=== PATIENT | female | born 1995 | race Caucasian/White ===

== ENCOUNTER 2019-04-18 08:49 | Emergency (ER) | payer BC ==
--- NOTE | 2019-04-18 09:34 | EDM.PDOC ---
ED HPI GENERAL MEDICAL PROBLEM - General Source of Information: Reports: Patient History Limitations: Reports: No Limitations - History of Present Illness Onset: Today Onset Time: 08:15 Location: Reports: Head, Back Quality: Reports: Throbbing Severity: Mild Headache Pain Score (Numeric/FACES): 5 Lower Back Pain Score (Numeric/FACES): 3 <Lori Haynes - Last Filed: 04/18/19 09:28> <Saul Carver - Last Filed: 04/18/19 09:44> - General Chief Complaint: Trauma Stated Complaint: FELL ON ICE (38 WEEKS ) Time Seen by Provider: 04/18/19 09:15 - History of Present Illness INITIAL COMMENTS - FREE TEXT/NARRATIVE: Patient is a pleasant 24-year-old female, 38 weeks , presents to the ED after falling on the ice at 0815. She was walking to work when she slipped on the ice. She reports her feet slipped out from underneath her and she landed on her back and then hit the back of her head on the sidewalk. The fall was not witnessed. She denies loss of conscious, but reports "seeing stars " for a few seconds. She states she sat on the sidewalk for about 5 minutes before getting up and finished her walk to work. She now has a headache that is throbbing and a 5/10 in severity and low back pain that is 3/10 in severity. She has been having lower abdominal cramps, [place], for the past week and is still having them this morning. After the fall she could not feel the baby kick, but since being in the ED she has felt the baby kick multiple times. She states her head is tender and she feels a "lump" on the back of her head where it hit the sidewalk. She denies abdominal pain, vaginal discharge, nausea , chest pain, and shortness of breath. Of note, her OB is Dr. Moni Vidal. Dr. Vidal's office sent the patient over to the ED for evaluation and then she is to go to Dr. Vidal's office once discharged from the ED. 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: Musculoskeletal History: Reports: Fracture Psychiatric History: Reports: Anxiety, Depression Hematologic History: Reports: Anemia - Infectious Disease History Infectious Disease History: Reports: Chicken Pox <Lori Haynes - Last Filed: 04/18/19 09:28> Social & Family History - Tobacco Use Smoking Status *Q: Former Smoker Used Tobacco, but Quit: Yes Month/Year Tobacco Last Used: Feb 2018 - Caffeine Use Caffeine Use: Reports: Coffee - Recreational Drug Use Recreational Drug Use: No <Lori Haynes - Last Filed: 04/18/19 09:28> Review of Systems - Review of Systems Review Of Systems: See Below Constitutional: Reports: No Symptoms. Denies: Fever, Weakness Eyes: Reports: No Symptoms. Denies: Blurred Vision, Vision Change Ears: Reports: No Symptoms. Denies: Dizziness Respiratory: Reports: No Symptoms. Denies: Shortness of Breath Cardiovascular: Reports: No Symptoms. Denies: Chest Pain, Lightheadedness, Syncope GI/Abdominal: Reports: No Symptoms. Denies: Abdominal Pain, Nausea Genitourinary: Reports: No Symptoms. Denies: Vaginal Bleeding Musculoskeletal: Reports: Back Pain (lumbar). Denies: Neck Pain Skin: Reports: No Symptoms Neurological: Reports: Headache (occipital area from falling). Denies: Dizziness, Numbness, Syncope, Tingling Psychiatric: Reports: No Symptoms <Lori Haynes - Last Filed: 04/18/19 09:28> ED EXAM, GENERAL - Physical Exam Exam: See Below Exam Limited By: No Limitations General Appearance: Alert, WD/WN, No Apparent Distress Eye Exam: Bilateral Eye: Normal Inspection, PERRL Head: Atraumatic, Normocephalic, Other (sensitive to touch over the occipital area since hitting the area during fall) Neck: Normal Inspection, Supple, Non-Tender, Full Range of Motion. No: Tender Lateral, Tender Midline Respiratory/Chest: No Respiratory Distress, Lungs Clear, Normal Breath Sounds, No Accessory Muscle Use, Chest Non-Tender Cardiovascular: Normal Peripheral Pulses, Regular Rate, Rhythm, No Edema, No Gallop, No Murmur, No Rub GI/Abdominal: Normal Bowel Sounds, Soft, Non-Tender, No Organomegaly, No Distention, No Mass, Other (felt baby move during exam) Back Exam: Normal Inspection, Full Range of Motion. No: Paraspinal Tenderness, Vertebral Tenderness Extremities: Normal Inspection, Normal Range of Motion, Non-Tender, Normal Capillary Refill, No Pedal Edema Neurological: Alert, Oriented, CN II-XII Intact, Normal Cognition, Normal Gait, No Motor/Sensory Deficits Psychiatric: Normal Affect, Normal Mood Skin Exam: Warm, Dry, Intact, Normal Color, No Rash <Lori Haynes - Last Filed: 04/18/19 09:28> Course <Lori Haynes - Last Filed: 04/18/19 09:28> <Saul Carver - Last Filed: 04/18/19 09:44> - Vital Signs Last Recorded V/S: Last Vital Signs Temp 99.2 F 04/18/19 08:55 Pulse 102 H 04/18/19 08:55 Resp 16 04/18/19 08:55 BP 124/87 04/18/19 08:55 Pulse Ox 98 04/18/19 08:55 - Re-Assessments/Exams Free Text/Narrative Re-Assessment/Exam: 04/18/19 09:40 I examined the patient myself and I agree with Lori's assessment and plan. The patient fell and hit her head and hurt her back. heart tones were 150s. I do not feel she needs a CT of an x-ray. OB will evaluate her now. ( Saul Carver) Departure <Lori Haynes - Last Filed: 04/18/19 09:28> - Departure Time of Disposition: 09:45 Condition: Good - Discharge Information *PRESCRIPTION DRUG MONITORING PROGRAM REVIEWED*: Not Applicable *COPY OF PRESCRIPTION DRUG MONITORING REPORT IN PATIENT JULIO: Not Applicable <Saul Carver - Last Filed: 04/18/19 09:44> - Departure Disposition: Home, Self-Care 01 Clinical Impression: Fall Qualifiers: Encounter type: initial encounter Qualified Code(s): W19.XXXA - Unspecified fall, initial encounter Head injury Qualifiers: Encounter type: initial encounter Qualified Code(s): S09.90XA - Unspecified injury of head, initial encounter Contusion of head Qualifiers: Encounter type: initial encounter Contusion of head detail: scalp Qualified Code(s): S00.03XA - Contusion of scalp, initial encounter Low back pain Qualifiers: Chronicity: acute Back pain laterality: bilateral Sciatica presence: without sciatica Qualified Code(s): M54.5 - Low back pain - Discharge Information Referrals: Moin Vidal MD [Primary Care Provider] - 1 Week Forms: ED Department Discharge Additional Instructions: Ice the areas that hurt for 15 minutes 3 times per day for 2 days. Take tylenol for any pain. Follow up with OB now. Please return if you are worse such as more pain, nausea, vomiting, numbness, weakness, not acting right, bleeding, cramping or if you do not feel the baby moving. Sepsis Event Note - Evaluation Sepsis Screening Result: No Definite Risk - Focused Exam Date Exam was Performed: 04/18/19 Time Exam was Performed: 09:28 <Lori Haynes - Last Filed: 04/18/19 09:28> - Focused Exam Date Exam was Performed: 04/18/19 Time Exam was Performed: 09:40 <Saul Carver - Last Filed: 04/18/19 09:44> - Focused Exam Vital Signs: Vital Signs Temp Pulse Resp BP Pulse Ox 04/18/19 08:55 99.2 F 102 H 16 124/87 98
== END 2019-04-18 09:55 | disposition home or self-care (01) ==
LOC: JD.ED 08:49
DX: O9A.213 Injury, poisoning and certain other consequences of external causes complicating pregnancy, third trimester (principal); S00.03XA Contusion of scalp, initial encounter; M54.5 Low back pain; O99.341 Other mental disorders complicating pregnancy, first trimester; F41.9 Anxiety disorder, unspecified; F32.9 Major depressive disorder, single episode, unspecified; Z87.891 Personal history of nicotine dependence; Z88.8 Allergy status to other drugs, medicaments and biological substances; Z79.899 Other long term (current) drug therapy; W00.0XXA Fall on same level due to ice and snow, initial encounter; Y93.01 Activity, walking, marching and hiking; Z3A.38 38 weeks gestation of pregnancy
CPT/HCPCS: 99283

== ENCOUNTER 2019-04-25 10:08 | Inpatient (IN) | payer BC ==
[2019-04-25] MEDS ORDERED: fentaNYL 100 MCG/2 ML SDV IVPUSH PRN (12:51)
[2019-04-25] MEDS ORDERED: Ondansetron 4 MG/2 ML SDV IVPUSH PRN (12:51)
[2019-04-25] MEDS ORDERED: Aluminum Hydroxide/Magnesium Hydroxide/Simethicone Susp 30 ML Cup PO PRN (12:51)
[2019-04-25] MEDS ORDERED: Sodium Chloride 0.9% 10 ML Syringe FLUSH PRN (12:51)
[2019-04-25] MEDS ORDERED: Lidocaine 1% 50 ML MDV INJECT ONE (12:51)
[2019-04-25] MEDS ORDERED: Acetaminophen 325 MG Tab PO PRN (12:51)
[2019-04-25] MEDS ORDERED: Oxytocin/Lactated Ringers 10 UNIT/1,000 ML BAG IV SCH ×2 (13:00)
[2019-04-25] MEDS: Misoprostol 25 MCG (1/4 of 100 MCG) Tab VAG SCH ×3 (13:36→21:32)
[2019-04-25] MEDS ORDERED: ePHEDrine 50 MG/ML SDV IVPUSH PRN (16:22)
[2019-04-25] MEDS ORDERED: diphenhydrAMINE 50 MG/ML SDV IVPUSH PRN (16:22)
[2019-04-25] MEDS ORDERED: fentaNYL 100 MCG/2 ML SDV EPIDUR PRN (16:22)
[2019-04-25] MEDS ORDERED: Bupivacaine/fentaNYL/NS 100 ML Bag EPIDUR PRN (16:22)
--- NOTE | 2019-04-25 16:22 | PCM.PREANE ---
Preanesthetic Assessment - Procedure Proposed Procedure: Labor Epidural - Anesthesia/Transfusion/Family Hx Anesthesia History: No Prior Anesthesia Family History of Anesthesia Reaction: No Transfusion History: No Prior Transfusion(s) - Review of Systems General: No Symptoms Pulmonary: No Symptoms Cardiovascular: No Symptoms Gastrointestinal: No Symptoms Neurological: Other (Fell walking on the ice 04/18/2019. Headache and lower back pain. Feeling much better now, went to ER after fall. ) Other: Reports: None, Depression, Anxiety - Physical Assessment Vital Signs: Last Vital Signs Temp 37.0 C 04/25/19 12:51 Pulse 100 04/25/19 12:51 Resp 16 04/25/19 12:51 BP 111/67 04/25/19 12:51 Pulse Ox Height: 1.57 m Weight: 87.09 kg ASA Class: 2 Mental Status: Alert & Oriented x3 Airway Class: Mallampati = 2 Dentition: Reports: Dentures (lower), Partial (upper) Thyro-Mental Finger Breadths: 3 Mouth Opening Finger Breadths: 3 ROM/Head Extension: Full Lungs: Clear to Auscultation, Normal Respiratory Effort Cardiovascular: Regular Rate, Regular Rhythm - Lab Values: Laboratory Last Values WBC 7.78 K/mm3 (3.98-10.04) 04/25/19 13:30 RBC 3.85 M/mm3 (3.98-5.22) L 04/25/19 13:30 Hgb 11.2 gm/dl (11.2-15.7) 04/25/19 13:30 Hct 34.2 % (34.1-44.9) 04/25/19 13:30 MCV 88.8 fl (79.4-94.8) 04/25/19 13:30 MCH 29.1 pg (25.6-32.2) 04/25/19 13:30 MCHC 32.7 g/dl (32.2-35.5) 04/25/19 13:30 RDW Std Deviation 45.8 fL (36.4-46.3) 04/25/19 13:30 Plt Count 259 K/mm3 (182-369) 04/25/19 13:30 MPV 10.2 fl (9.4-12.3) 04/25/19 13:30 Blood Type B POSITIVE 04/25/19 13:30 Gel Antibody Screen Negative 04/25/19 13:30 - Allergies Allergies/Adverse Reactions: Allergies Allergy/AdvReac Type Severity Reaction Status Date / Time bupropion AdvReac Dizziness Verified 04/18/19 09:03 - Acknowledgements Anesthesia Type Planned: Epidural Pt an Appropriate Candidate for the Planned Anesthesia: Yes Alternatives and Risks of Anesthesia Discussed w Pt/Guardian: Yes Pt/Guardian Understands and Agrees with Anesthesia Plan: Yes PreAnesthesia Questionnaire - Past Health History Medical/Surgical History: Denies Medical/Surgical History Gastrointestinal History: Reports: PUD Genitourinary History: Reports: UTI, 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: Musculoskeletal History: Reports: Fracture Psychiatric History: Reports: Anxiety, Depression Hematologic History: Reports: Anemia - Infectious Disease History Infectious Disease History: Reports: Chicken Pox - SUBSTANCE USE Smoking Status *Q: Former Smoker Tobacco Use Within Last Twelve Months: No Recreational Drug Use History: No - HOME MEDS Home Medications: Home Meds No122/Iron/Folic Acid [ Multi Tablet] 1 each PO BEDTIME [History] Sertraline HCl 100 mg PO DAILY 03/04/19 [History] Ferrous Sulfate [Iron] 325 mg PO DAILY 04/18/19 [History] - CURRENT (IN HOUSE) MEDS Current Meds: Current Medications Acetaminophen (Tylenol) 650 mg PO Q4H PRN PRN Reason: Pain (Mild 1-3) and fever Al Hydroxide/Mg Hydroxide (Mag-Al Plus) 30 ml PO Q8H PRN PRN Reason: Heartburn Famotidine (Pepcid) 20 mg PO Q12H PRN PRN Reason: Heartburn Fentanyl (Sublimaze) 100 mcg IVPUSH Q1H PRN PRN Reason: Pain (moderate 4-6) Lactated Ringer's (Ringers, Lactated) 1,000 mls @ 100 mls/hr IV ASDIRECTED WESLY Oxytocin/Lactated Ringer's (Pitocin In Lr 10 Units/1,000 Ml) 10 unit in 1,000 mls @ 12 mls/hr IV TITRATE WESLY; Protocol Oxytocin/Lactated Ringer's (Pitocin In Lr 10 Units/1,000 Ml) 10 unit in 1,000 mls @ 500 mls/hr IV .CONTINUOUS WESLY Misoprostol (Cytotec) 25 mcg VAG Q4H WESLY Stop: 04/25/19 21:01 Last Admin: 04/25/19 13:36 Dose: 25 mcg Ondansetron HCl (Zofran) 4 mg IVPUSH Q4H PRN PRN Reason: Nausea/Vomiting Sodium Chloride (Saline Flush) 10 ml FLUSH ASDIRECTED PRN PRN Reason: Keep Vein Open Discontinued Medications Lidocaine HCl (Xylocaine 1%) 20 ml INJECT ONETIME ONE Stop: 04/25/19 12:52
--- NOTE | 2019-04-25 18:34 | PCM.LDHP ---
L&D History of Present Illness - General Date of Service: 04/25/19 Admit Problem/Dx: Patient Status Order with Admit Dx/Problem 04/25/19 12:52 Patient Status [ADT] Routine Admission Diagnosis/Problem Admission Diagnosis/Problem Term Source of Information: Patient History Limitations: Reports: No Limitations - History of Present Illness Introduction:: 24 yo A1 at 39+5 weeks with EDC 04/27/19 admitted for elective induction of labor. She had a low lying placenta in early , but that has resolved. Her last ultrasound was on 04/05/19 and EFW was 6 lb at that time (22%) and placenta normal. labs determined blood type B positive, she did the [place]requ[place] test that was wnl and XX sex chromosomes. She has had anemia with the . Infectious disease tests were all negative. GBS test negative. 1 hour glucola was negative. She received her influenza vaccine in 11/2018 and Tdap in 01/2019. She plans to breastfeed. She does have a history of depression and anxiety and has been on sertraline throughout her . She denies feeling contractions and membranes are intact. She was 1 cm dilated , 60% effaced and station -2 when I examined her this morning. 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: Musculoskeletal History: Reports: Fracture Psychiatric History: Reports: Anxiety, Depression Hematologic History: Reports: Anemia - Infectious Disease History Infectious Disease History: Reports: Chicken Pox Social & Family History - Tobacco Use Smoking Status *Q: Former Smoker Years of Tobacco use: 7 Used Tobacco, but Quit: Yes Month/Year Tobacco Last Used: 07/2018 - Caffeine Use Caffeine Use: Reports: Soda - Recreational Drug Use Recreational Drug Use: No - Living Situation & Occupation Living situation: Reports: Single (Significant other not involved), Alone Occupation: Employed H&P Review of Systems - Review of Systems: Review Of Systems: See Below General: Reports: No Symptoms HEENT: Reports: No Symptoms Pulmonary: Reports: No Symptoms Cardiovascular: Reports: No Symptoms Gastrointestinal: Reports: No Symptoms Genitourinary: Reports: No Symptoms Musculoskeletal: Reports: No Symptoms Skin: Reports: No Symptoms Psychiatric: Reports: Anxiety Neurological: Reports: No Symptoms Hematologic/Lymphatic: Reports: No Symptoms Immunologic: Reports: No Symptoms L&D Exam - Exam Exam: See Below - Vital Signs Vital Signs: Last Vital Signs Temp 37.0 C 04/25/19 12:51 Pulse 100 04/25/19 12:51 Resp 16 04/25/19 12:51 BP 111/67 04/25/19 12:51 Pulse Ox Weight: 87.09 kg - OB Specific Contraction Duration (sec): Irregular tightenings Contraction Intensity: Irritability Movement: Active Heart Tones: Present Heart Tones per Min: 140 Heart Rate (FHR) Variability: Moderate (6-25 bmp) Presentation: Vertex Estimated Weight: 7 lb - Wilcox Score Wilcox Score Cervix Position: Posterior Wilcox Score Consistency: Medium Wilcox Score Effacement: 51-70% Wilcox Score Dilation: 1-2 cm Wilcox Score Infant's Station: -2 Wilcox Score Total: 5 - Exam General: Alert, Oriented HEENT: Mucosa Moist & [place] Neck: Supple, Trachea Midline Lungs: Normal Respiratory Effort Cardiovascular: Regular Rate, Regular Rhythm GI/Abdominal Exam: Normal Bowel Sounds, Soft Rectal Exam: Deferred Genitourinary: Normal external exam Back Exam: Normal Inspection, Full Range of Motion Extremities: Pedal Edema (trace) Skin: Warm, Dry, Intact Psychiatric: Alert, Anxious - Patient Data Lab Results Last 24 hrs: Laboratory Results - last 24 hr 04/25/19 04/25/19 Range/Units 13:30 13:30 WBC 7.78 (3.98-10.04) K/mm3 RBC 3.85 L (3.98-5.22) M/mm3 Hgb 11.2 (11.2-15.7) gm/dl Hct 34.2 (34.1-44.9) % MCV 88.8 (79.4-94.8) fl MCH 29.1 (25.6-32.2) pg MCHC 32.7 (32.2-35.5) g/dl RDW Std Deviation 45.8 (36.4-46.3) fL Plt Count 259 (182-369) K/mm3 MPV 10.2 (9.4-12.3) fl Blood Type B POSITIVE Gel Antibody Screen Negative Result Diagrams: 04/25/19 13:30 - Problem List (1) 39 weeks gestation of SNOMED Code(s): 12802068 ICD Code: Z3A.39 - 39 WEEKS GESTATION OF Status: Acute Current Visit: Yes (2) Encounter for elective induction of labor SNOMED Code(s): 264120747 ICD Code: Z34.90 - ENCNTR FOR SUPRVSN OF NORMAL , UNSP, UNSP TRIMESTER Status: Acute Current Visit: Yes (3) Depression with anxiety SNOMED Code(s): 988655172 ICD Code: F41.8 - OTHER SPECIFIED ANXIETY DISORDERS Status: Acute Current Visit: Yes Problem List Initiated/Reviewed/Updated: Yes Orders Last 24hrs: Active Orders 24 hr Category Date Time Status Patient Status [ADT] Routine ADT 04/25/19 12:52 Active Activity as Tolerated [RC] PFP Care 04/25/19 12:51 Active Communication Order [RC] ASDIRECTED Care 04/25/19 12:51 Active Heart Tones [RC] ASDIRECTED Care 04/25/19 12:52 Active Non Stress Test [RC] PER UNIT ROUTINE Care 04/25/19 12:51 Active Notify Provider [RC] ASDIRECTED Care 04/25/19 16:22 Active Notify Provider [RC] PFP Care 04/25/19 12:51 Active Notify Provider [RC] PRN Care 04/25/19 12:51 Active Vital Signs [RC] PER UNIT ROUTINE Care 04/25/19 12:51 Active Regular Diet [DIET] Diet 04/25/19 Lunch Active RAPID PLASMA REAGIN,RPR [CHEM] Routine Lab 04/25/19 13:30 Received Acetaminophen [Tylenol] Med 04/25/19 12:51 Active 650 mg PO Q4H PRN Alum Hydrox/Mag Hydrox/Simeth [Mag-Al Plus] Med 04/25/19 12:51 Active 30 ml PO Q8H PRN Bupivacaine/fentaNYL/NS [fentaNYL/Bupivacaine/NS 2 MCG- Med 04/25/19 16:22 Active 0.125% 100 ML] 100 ml EPIDUR ASDIRECTED PRN Famotidine [Pepcid] Med 04/25/19 21:00 Active 20 mg PO Q12H PRN Lactated Ringers [Ringers, Lactated] 1,000 ml Med 04/25/19 13:00 Active IV ASDIRECTED Ondansetron [Zofran] Med 04/25/19 12:51 Active 4 mg IVPUSH Q4H PRN Oxytocin/Lactated Ringers [Pitocin in LR 10 Units/1,000 Med 04/25/19 13:00 Active ML] 10 unit in 1,000 ml IV .CONTINUOUS Oxytocin/Lactated Ringers [Pitocin in LR 10 Units/1,000 Med 04/25/19 13:00 Active ML] 10 unit in 1,000 ml IV TITRATE Sodium Chloride 0.9% [Saline Flush] Med 04/25/19 12:51 Active 10 ml FLUSH ASDIRECTED PRN diphenhydrAMINE [Benadryl] Med 04/25/19 16:22 Active 25 mg IVPUSH Q6H PRN ePHEDrine [ePHEDrine sulfate] Med 04/25/19 16:22 Active 5 mg IVPUSH ASDIRECTED PRN fentaNYL [Sublimaze] Med 04/25/19 16:22 Active 100 mcg EPIDUR Q3H PRN fentaNYL [Sublimaze] Med 04/25/19 12:51 Active 100 mcg IVPUSH Q1H PRN miSOPROStoL [Cytotec] Med 04/25/19 13:00 Active 25 mcg VAG Q4H Electronic Heart Tones Ext w TOCO [WOMSER] Oth 04/25/19 12:51 Ordered Routine Electronic Heart Tones Internal [WOMSER] Per Unit Oth 04/25/19 12:51 Ordered Routine Peripheral IV Insertion Adult [OM.PC] Routine Oth 04/25/19 12:51 Ordered Resuscitation Status Routine Resus Stat 04/25/19 12:51 Ordered Medication Orders Acetaminophen (Tylenol) 650 mg PO Q4H PRN PRN Reason: Pain (Mild 1-3) and fever Al Hydroxide/Mg Hydroxide (Mag-Al Plus) 30 ml PO Q8H PRN PRN Reason: Heartburn Diphenhydramine HCl (Benadryl) 25 mg IVPUSH Q6H PRN PRN Reason: pruritis Ephedrine Sulfate (Ephedrine Sulfate) 5 mg IVPUSH ASDIRECTED PRN PRN Reason: Hypotension Famotidine (Pepcid) 20 mg PO Q12H PRN PRN Reason: Heartburn Fentanyl (Sublimaze) 100 mcg IVPUSH Q1H PRN PRN Reason: Pain (moderate 4-6) Fentanyl (Sublimaze) 100 mcg EPIDUR Q3H PRN PRN Reason: Pain Fentanyl/Bupivacaine HCl (Fentanyl/Bupivacaine/Ns 2 Mcg-0.125% 100 Ml) 100 ml EPIDUR ASDIRECTED PRN PRN Reason: Pain Lactated Ringer's (Ringers, Lactated) 1,000 mls @ 100 mls/hr IV ASDIRECTED WESLY Oxytocin/Lactated Ringer's (Pitocin In Lr 10 Units/1,000 Ml) 10 unit in 1,000 mls @ 12 mls/hr IV TITRATE WESLY; Protocol Oxytocin/Lactated Ringer's (Pitocin In Lr 10 Units/1,000 Ml) 10 unit in 1,000 mls @ 500 mls/hr IV .CONTINUOUS WESLY Misoprostol (Cytotec) 25 mcg VAG Q4H WESLY Stop: 04/25/19 21:01 Last Admin: 04/25/19 17:32 Dose: 25 mcg Admin: 04/25/19 13:36 Dose: 25 mcg Ondansetron HCl (Zofran) 4 mg IVPUSH Q4H PRN PRN Reason: Nausea/Vomiting Sodium Chloride (Saline Flush) 10 ml FLUSH ASDIRECTED PRN PRN Reason: Keep Vein Open Assessment/Plan Comment:: 24 yo A1 at 39+5 weeks admitted for elective induction of labor. She has had second dose of cytotec 25 mcg pv and just having some cramping at this time. Will continue to monitor, consider 3rd dose of cytotec if needed in 4 hours. monitor strip is category I. Plan: Continue cervical ripening and then transition to pitocin IV for induction when appropriate. Epidural when appropriate. Expectant management. Patient plans to breastfeed.
[2019-04-25] MEDS ORDERED: Famotidine 20 MG Tab PO PRN (21:00)
[2019-04-26] MEDS: Lactated Ringers 1,000 ML IV SCH ×3 (02:00→08:19)
--- NOTE | 2019-04-26 02:01 | PCM.SN ---
- Free Text/Narrative Note: Patient has received 3 doses of cytotec 25 mcg pv. She is feeling more cramping and tightenings, but not picking up regular contractions on the monitor. Cervix exam done and cervix is anterior, 1cm dilated, 75% effaced, vertex and station 0. monitor strip is Category I. Assessment - there has been some cervical change and ripening. Plan - start Pitocin IV induction per protocol. Plan AROM to augment in a few hours. Expectant management. Anticipate vaginal delivery. Epidural when appropriate.
[2019-04-26] MEDS ORDERED: Nalbuphine 10 MG/ML Syringe IVPUSH ONE (07:01)
--- NOTE | 2019-04-26 08:49 | PCM.PNLD ---
Labor Progress Note - VS & Meds Vital Signs: Last Vital Signs Temp 37.0 C 04/25/19 12:51 Pulse 100 04/25/19 12:51 Resp 16 04/25/19 12:51 BP 111/67 04/25/19 12:51 Pulse Ox Active Medications: Current Medications Acetaminophen (Tylenol) 650 mg PO Q4H PRN PRN Reason: Pain (Mild 1-3) and fever Al Hydroxide/Mg Hydroxide (Mag-Al Plus) 30 ml PO Q8H PRN PRN Reason: Heartburn Diphenhydramine HCl (Benadryl) 25 mg IVPUSH Q6H PRN PRN Reason: pruritis Ephedrine Sulfate (Ephedrine Sulfate) 5 mg IVPUSH ASDIRECTED PRN PRN Reason: Hypotension Famotidine (Pepcid) 20 mg PO Q12H PRN PRN Reason: Heartburn Fentanyl (Sublimaze) 100 mcg IVPUSH Q1H PRN PRN Reason: Pain (moderate 4-6) Fentanyl (Sublimaze) 100 mcg EPIDUR Q3H PRN PRN Reason: Pain Last Admin: 04/26/19 07:49 Dose: 100 mcg Fentanyl/Bupivacaine HCl (Fentanyl/Bupivacaine/Ns 2 Mcg-0.125% 100 Ml) 100 ml EPIDUR ASDIRECTED PRN PRN Reason: Pain Last Admin: 04/26/19 07:49 Dose: 100 ml Lactated Ringer's (Ringers, Lactated) 1,000 mls @ 100 mls/hr IV ASDIRECTED WESLY Last Admin: 04/26/19 08:19 Dose: 100 mls/hr Oxytocin/Lactated Ringer's (Pitocin In Lr 10 Units/1,000 Ml) 10 unit in 1,000 mls @ 12 mls/hr IV TITRATE WESLY; Protocol Last Titration: 04/26/19 08:00 Dose: 4 munits/min, 24 mls/hr Oxytocin/Lactated Ringer's (Pitocin In Lr 10 Units/1,000 Ml) 10 unit in 1,000 mls @ 500 mls/hr IV .CONTINUOUS WESLY Ondansetron HCl (Zofran) 4 mg IVPUSH Q4H PRN PRN Reason: Nausea/Vomiting Sodium Chloride (Saline Flush) 10 ml FLUSH ASDIRECTED PRN PRN Reason: Keep Vein Open Discontinued Medications Lidocaine HCl (Xylocaine 1%) 20 ml INJECT ONETIME ONE Stop: 04/25/19 12:52 Misoprostol (Cytotec) 25 mcg VAG Q4H WESLY Stop: 04/25/19 21:01 Last Admin: 04/25/19 21:32 Dose: 25 mcg Nalbuphine HCl (Nubain) 10 mg IVPUSH ONETIME ONE Stop: 04/26/19 07:02 Last Admin: 04/26/19 07:15 Dose: 10 mg - Uterine Contractions Uterine Monitoring Mode: External Mcpherson Contraction Frequency (min): 2 Contraction Duration (sec): 60 Contraction Intensity: Strong Uterine Resting Tone: Soft - Monitoring Monitor Mode: External Ultrasound Heart Rate (FHR) Variability: Moderate (6-25 bmp) Accelerations: Present, 15x15 Decelerations: Variable Strip Review: Category II - Vaginal Exam Dilation (cm): 6 Effacement (Percent): 80 Station: 1 Cervical Position: Anterior Sterile Vaginal Exam Performed By: Moni Vidal Vaginal Exam Comment: Planned to do AROM, but it felt like there were no membranes there. Patient felt like maybe her water broke when she was in the tub - Labor Progress (Free Text) Labor Progress: Patient just had epidural placed at 0800 today. She spent some time in the tub overnight which really helped. Her pitocin was at 10 mu/min before starting the epidural, but her contractions were too close, so decreased to 4 mu/min. Baby tolerated epidural. Patient's bp did drop to 90's/60's after epidural. Patient is comfortable. A: Active labor, SROM while in the tub. Epidural in place. P: Expectant management, anticipate vaginal delivery. Adjust pitocin as needed to keep effective contractions.
[2019-04-26] MEDS ORDERED: Lidocaine 1% 50 ML MDV ONE (10:16)
--- NOTE | 2019-04-26 11:19 | PCM.DEL ---
L & D Note - General Info Date of Service: 04/26/19 Mother's Due Date: 04/27/19 - Delivery Note Labor: Induced by Oxytocin Cervical Ripening Method: Misoprostil, Oxytocin Delivery Outcome: Livebirth Delivery Method: Spontaneous Vaginal Delivery-Single Infant Delivery Mode: Spontaneous Presentation: Right Occiput Anterior (TIARA) Nuchal Cord: Present (2 loops) Prep: Povidone-Iodine (Betadine Anesthesia Type: Epidural Anesthetic: Lidocaine (Xylocaine) 1% Plain Local Anesthetic Volume: 5cc Amniotic Fluid Description: Clear Episiotomy Type: None Laceration: 1st Degree, Perineal Suture type: Vicryl Suture size: 3-0 Placenta: Intact, Spontaneous Cord: 3 Vessels Estimated Blood Loss: 100 Resuscitation Needed: No : Suctioned, Bulb Syringe, Stimulated, Warmed, [place] Used Provider: Moni Vidal Score 1 min: 8 Score 5 min: 9 Delivery Comments (Free Text/Narrative):: 24 yo A1 at 39+5 weeks with EDC 04/27/19 admitted for elective induction of labor. She had a low lying placenta in early , but that has resolved. Her last ultrasound was on 04/05/19 and EFW was 6 lb at that time (22%) and placenta normal. labs determined blood type B positive, she did the [place]requ[place] test that was wnl and XX sex chromosomes. She has had anemia with the . Infectious disease tests were all negative. GBS test negative. 1 hour glucola was negative. She received her influenza vaccine in 11/2018 and Tdap in 01/2019. She plans to breastfeed. She does have a history of depression and anxiety and has been on sertraline throughout her . She received 3 doses of cytotec 25 mcg pv and then switched to IV pitocin at 0130. She was 1 cm dilated, 75% effaced and station 0 at that time. Pitocin increased to max of 10 mu/min. She had her epidural placed on 0800 and I checked her after that and she was 6 cm dilated, 80% effaced and station +1. Membranes were ruptured. She thinks that they ruptured when she was in the tub. She was comfortable with the epidural and progressed quickly and was complete and we started pushing at 0959. Baby tolerated second stage. Baby's head delivered from TIARA position and there were 2 loops of nuchal cord that easily slipped over the head. The shoulders and rest of the baby delivered without difficulty. Baby girl delivered at 1008. She cried with delivery and had good tone, mouth and nose suctioned with bulb suction and baby was placed on mother's abdomen. Cord was clamped and cut once it stopped pulsating. Apgars 8 and 9 at 1 and 5 minutes respectively. weight was 6 lb 5 oz ( 2870 grams). Placenta delivered spontaneously at 1012, there were 3 vessels and placenta was intact. She had a first degree laceration that was repaired with 3-0 vicryl. Bimanual exam was done after the tear was repaired and some blood clots were expressed. Fundus firm. Both Mom and baby were left in the delivery room in stable condition. Baby was latched by 10:50. Induction Criteria - Wilcox Score Wilcox Score Dilation: 1-2 cm Wilcox Score Effacement: 60-70% Wilcox Score 's Station: -1 ,0 Wilcox Score Consistency: Medium Wilcox Score Cervix Position: Midposition Wilcox Score Total: 7 Wilcox Score Presenting Part: Reports: Cephalic - Induction Gestational Age >/= 39 wks: Yes Estimated Pelvis: Reports: Adequate Reassuring Monitoring Strip: Yes Absence of Tachy Systole: Yes - Augmentation Estimated Pelvis: Reports: Adequate Weight Estimated:: Reports: AGA Reassuring Monitoring Strip: Yes Absence of Tachy Systole: Yes - General Info Date of Service: 04/26/19 Admission Dx/Problem (Free Text): Spontaneous vaginal delivery Functional Status: Reports: Pain Controlled - Review of Systems General: Reports: No Symptoms HEENT: Reports: No Symptoms Pulmonary: Reports: No Symptoms Cardiovascular: Reports: No Symptoms Gastrointestinal: Reports: No Symptoms Genitourinary: Reports: No Symptoms Musculoskeletal: Reports: No Symptoms Skin: Reports: No Symptoms Neurological: Reports: No Symptoms Psychiatric: Reports: No Symptoms - Patient Data Vitals - Most Recent: Last Vital Signs Temp 37.0 C 04/25/19 12:51 Pulse 100 04/25/19 12:51 Resp 16 04/25/19 12:51 BP 111/67 04/25/19 12:51 Pulse Ox Weight - Most Recent: 87.09 kg I&O - Last 24 Hours: Intake & Output 04/25/19 04/26/19 04/26/19 22:59 06:59 14:59 Intake Total 2000 Output Total 1100 Balance 900 Lab Results Last 24 Hours: Laboratory Results - last 24 hr 04/25/19 04/25/19 04/25/19 Range/Units 13:30 13:30 13:30 WBC 7.78 (3.98-10.04) K/mm3 RBC 3.85 L (3.98-5.22) M/mm3 Hgb 11.2 (11.2-15.7) gm/dl Hct 34.2 (34.1-44.9) % MCV 88.8 (79.4-94.8) fl MCH 29.1 (25.6-32.2) pg MCHC 32.7 (32.2-35.5) g/dl RDW Std Deviation 45.8 (36.4-46.3) fL Plt Count 259 (182-369) K/mm3 MPV 10.2 (9.4-12.3) fl RPR Non-reactive (NONREACTIVE) Blood Type B POSITIVE Gel Antibody Screen Negative Med Orders - Current: Current Medications Acetaminophen (Tylenol) 650 mg PO Q4H PRN PRN Reason: Pain (Mild 1-3) and fever Al Hydroxide/Mg Hydroxide (Mag-Al Plus) 30 ml PO Q8H PRN PRN Reason: Heartburn Diphenhydramine HCl (Benadryl) 25 mg IVPUSH Q6H PRN PRN Reason: pruritis Ephedrine Sulfate (Ephedrine Sulfate) 5 mg IVPUSH ASDIRECTED PRN PRN Reason: Hypotension Famotidine (Pepcid) 20 mg PO Q12H PRN PRN Reason: Heartburn Fentanyl (Sublimaze) 100 mcg IVPUSH Q1H PRN PRN Reason: Pain (moderate 4-6) Fentanyl (Sublimaze) 100 mcg EPIDUR Q3H PRN PRN Reason: Pain Last Admin: 04/26/19 07:49 Dose: 100 mcg Fentanyl/Bupivacaine HCl (Fentanyl/Bupivacaine/Ns 2 Mcg-0.125% 100 Ml) 100 ml EPIDUR ASDIRECTED PRN PRN Reason: Pain Last Admin: 04/26/19 07:49 Dose: 100 ml Lactated Ringer's (Ringers, Lactated) 1,000 mls @ 100 mls/hr IV ASDIRECTED WESLY Last Admin: 04/26/19 08:19 Dose: 100 mls/hr Oxytocin/Lactated Ringer's (Pitocin In Lr 10 Units/1,000 Ml) 10 unit in 1,000 mls @ 12 mls/hr IV TITRATE WESLY; Protocol Last Titration: 04/26/19 08:00 Dose: 4 munits/min, 24 mls/hr Oxytocin/Lactated Ringer's (Pitocin In Lr 10 Units/1,000 Ml) 10 unit in 1,000 mls @ 500 mls/hr IV .CONTINUOUS WESLY Ondansetron HCl (Zofran) 4 mg IVPUSH Q4H PRN PRN Reason: Nausea/Vomiting Sodium Chloride (Saline Flush) 10 ml FLUSH ASDIRECTED PRN PRN Reason: Keep Vein Open Discontinued Medications Lidocaine HCl (Xylocaine 1%) 20 ml INJECT ONETIME ONE Stop: 04/25/19 12:52 Lidocaine HCl (Xylocaine 1%) Confirm Administered Dose 50 ml .ROUTE .STK-MED ONE Stop: 04/26/19 10:17 Misoprostol (Cytotec) 25 mcg VAG Q4H WESLY Stop: 04/25/19 21:01 Last Admin: 04/25/19 21:32 Dose: 25 mcg Nalbuphine HCl (Nubain) 10 mg IVPUSH ONETIME ONE Stop: 04/26/19 07:02 Last Admin: 04/26/19 07:15 Dose: 10 mg - Exam General: Alert, Oriented, Cooperative, No Acute Distress HEENT: Pupils Equal, Mucous Membr. Moist/[place] Neck: Supple Lungs: Normal Respiratory Effort Cardiovascular: Regular Rate, Regular Rhythm GI/Abdominal Exam: Normal Bowel Sounds, Soft (Female) Exam: Enlarged Uterus, Vaginal Bleeding Back Exam: Normal Inspection Extremities: Normal Inspection, Pedal Edema Skin: Warm, Dry, Intact Neurological: No New Focal Deficit Psy/Mental Status: Alert, Normal Affect, Normal Mood - Problem List & Annotations (1) 39 weeks gestation of SNOMED Code(s): 85660009 Code(s): Z3A.39 - 39 WEEKS GESTATION OF Status: Acute Current Visit: Yes (2) Encounter for elective induction of labor SNOMED Code(s): 578126092 Code(s): Z34.90 - ENCNTR FOR SUPRVSN OF NORMAL , UNSP, UNSP TRIMESTER Status: Acute Current Visit: Yes (3) Depression with anxiety SNOMED Code(s): 122371499 Code(s): F41.8 - OTHER SPECIFIED ANXIETY DISORDERS Status: Acute Current Visit: Yes (4) Normal spontaneous vaginal delivery SNOMED Code(s): 95501754, 548417678 Code(s): O80 - ENCOUNTER FOR FULL-TERM UNCOMPLICATED DELIVERY Status: Acute Current Visit: Yes (5) Mother currently breast-feeding SNOMED Code(s): 459955105 Code(s): Z39.1 - ENCOUNTER FOR CARE AND EXAMINATION OF LACTATING MOTHER Status: Acute Current Visit: Yes - Problem List Review Problem List Initiated/Reviewed/Updated: Yes - My Orders Last 24 Hours: My Active Orders 04/25/19 12:51 Activity as Tolerated [RC] PFP Communication Order [RC] ASDIRECTED Notify Provider [RC] PFP Notify Provider [RC] PRN Vital Signs [RC] PER UNIT ROUTINE Acetaminophen [Tylenol] 650 mg PO Q4H PRN Alum Hydrox/Mag Hydrox/Simeth [Mag-Al Plus] 30 ml PO Q8H PRN Ondansetron [Zofran] 4 mg IVPUSH Q4H PRN Sodium Chloride 0.9% [Saline Flush] 10 ml FLUSH ASDIRECTED PRN fentaNYL [Sublimaze] 100 mcg IVPUSH Q1H PRN Electronic Heart Tones Ext w TOCO [WOMSER] Routine Electronic Heart Tones Internal [WOMSER] Per Unit Routine Peripheral IV Insertion Adult [OM.PC] Routine Resuscitation Status Routine 04/25/19 12:52 Patient Status [ADT] Routine Heart Tones [RC] ASDIRECTED 04/25/19 13:00 Lactated Ringers [Ringers, Lactated] 1,000 ml IV ASDIRECTED Oxytocin/Lactated Ringers [Pitocin in LR 10 Units/1,000 ML] 10 unit in 1,000 ml IV .CONTINUOUS Oxytocin/Lactated Ringers [Pitocin in LR 10 Units/1,000 ML] 10 unit in 1,000 ml IV TITRATE 04/25/19 21:00 Famotidine [Pepcid] 20 mg PO Q12H PRN 04/25/19 Lunch Regular Diet [DIET] 04/26/19 10:56 Patient Status Manage Transfer [TRANSFER] Routine - Assessment Assessment:: at term. Healthy baby, plans to breastfeed. EBL 100 ml, uterus firm. FOB not involved, has family support from her sisters. - Plan Plan:: 24 yo A1 at 39+5 weeks admitted for elective induction of labor. She has had second dose of cytotec 25 mcg pv and just having some cramping at this time. Will continue to monitor, consider 3rd dose of cytotec if needed in 4 hours. monitor strip is category I. Plan: Continue cervical ripening and then transition to pitocin IV for induction when appropriate. Epidural when appropriate. Expectant management. Patient plans to breastfeed. 04/26/19 11:30 Plan - routine care and needs lots of education. Family support from her sisters, FOB not involved. support and education. Depression - will continue sertraline and monitor closely. 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 If I will be seeing baby, then she can schedule follow up for 6 weeks and I will evaluate her mood when I see her with baby. Transfer care to Dr. Delacruz at this time since I will be leaving on vacation. I have discussed her with Dr. Delacruz and she accepts care.
[2019-04-26] MEDS ORDERED: Benzocaine/Menthol 20%-0.5% Spray 56 GM Canister TOP PRN (11:26)
[2019-04-26] MEDS ORDERED: Docusate Sodium 100 MG Cap PO PRN (11:26)
[2019-04-26] MEDS ORDERED: Witch Hazel Medicated Pads 40/Jar TOP PRN (11:26)
[2019-04-26] MEDS ORDERED: Simethicone 80 MG Tab.Chew PO PRN (11:26)
[2019-04-26] MEDS ORDERED: Bupivacaine 0.25% 10 ML SDV ONE (13:00)
[2019-04-26] MEDS: Ibuprofen 800 MG Tab PO PRN ×2 (16:58→22:55)
[2019-04-27] MEDS: Sertraline 50 MG Tab PO SCH ×2 (04:34→13:53)
[2019-04-27] MEDS ORDERED: Measles, Mumps & Rubella Vaccine 0.5 ML SDV SUBCUT ONE (06:00)
--- NOTE | 2019-04-27 07:19 | PCM.DCSUM1 ---
Discharge Summary - Hospital Course Diagnosis: Stroke: No - Discharge Data Discharge Date: 04/27/19 Discharge Disposition: Home, Self-Care 01 Condition: Good - Referral to Home Health Primary Care Physician: Moni Vidal MD - Patient Instructions Diet: Usual Diet as Tolerated Activity: No Strenuous Activities Activity, Other: pelvic rest Driving: May Drive Today Notify Provider of: Fever, Increased Pain, Swelling and Redness, Drainage, Nausea and/or Vomiting - Discharge Plan *PRESCRIPTION DRUG MONITORING PROGRAM REVIEWED*: No *COPY OF PRESCRIPTION DRUG MONITORING REPORT IN PATIENT JULIO: No Home Medications: Home Meds No122/Iron/Folic Acid [ Multi Tablet] 1 each PO BEDTIME [History] Sertraline HCl 100 mg PO DAILY 03/04/19 [History] Ferrous Sulfate [Iron] 325 mg PO DAILY 04/18/19 [History] Referrals: Moni Vidal MD [Primary Care Provider] - (6 weeks) - Discharge Summary/Plan Comment DC Time >30 min.: Yes - General Info Date of Service: 04/27/19 Functional Status: Reports: Pain Controlled - Review of Systems General: Reports: No Symptoms HEENT: Reports: No Symptoms Pulmonary: Reports: No Symptoms Cardiovascular: Reports: No Symptoms Gastrointestinal: Reports: No Symptoms Genitourinary: Reports: No Symptoms Musculoskeletal: Reports: No Symptoms Skin: Reports: No Symptoms Neurological: Reports: No Symptoms Psychiatric: Reports: No Symptoms - Patient Data Vitals - Most Recent: Last Vital Signs Temp 36.7 C 04/27/19 02:55 Pulse 61 04/27/19 02:55 Resp 16 04/27/19 02:55 BP 94/66 04/27/19 02:55 Pulse Ox 96 04/27/19 02:55 Weight - Most Recent: 87.09 kg Med Orders - Current: Current Medications Benzocaine/Menthol (Dermoplast Pain Relief [place]) 0 gm TOP ASDIRECTED PRN PRN Reason: Perineal Comfort Measure Last Admin: 04/26/19 11:54 Dose: 1 can Docusate Sodium (Colace) 100 mg PO BID PRN PRN Reason: Constipation Last Admin: 04/27/19 04:59 Dose: 100 mg Lactated Ringer's (Ringers, Lactated) 1,000 mls @ 100 mls/hr IV ASDIRECTED WESLY Last Admin: 04/26/19 08:19 Dose: 100 mls/hr Ibuprofen (Motrin) 800 mg PO Q6H PRN PRN Reason: Mild pain or fever Last Admin: 04/26/19 22:55 Dose: 800 mg Prenat Multivit/Keith/Iron/Folic Ac ( Plus Iron) 1 each PO DAILY WESLY Sertraline HCl (Zoloft) 100 mg PO DAILY WESLY Last Admin: 04/27/19 04:34 Dose: Not Given Simethicone (Simethicone) 80 mg PO Q4H PRN PRN Reason: Gas Sodium Chloride (Saline Flush) 10 ml FLUSH ASDIRECTED PRN PRN Reason: Keep Vein Open Witch Anita (Tucks) 1 pad TOP ASDIRECTED PRN PRN Reason: Perineal Comfort Measure Last Admin: 04/26/19 11:53 Dose: 1 tub Discontinued Medications Acetaminophen (Tylenol) 650 mg PO Q4H PRN PRN Reason: Pain (Mild 1-3) and fever Al Hydroxide/Mg Hydroxide (Mag-Al Plus) 30 ml PO Q8H PRN PRN Reason: Heartburn Bupivacaine HCl (Sensorcaine-Mpf 0.25%) 10 ml .ROUTE .[facility]-MED ONE Stop: 04/26/19 13:01 Diphenhydramine HCl (Benadryl) 25 mg IVPUSH Q6H PRN PRN Reason: pruritis Ephedrine Sulfate (Ephedrine Sulfate) 5 mg IVPUSH ASDIRECTED PRN PRN Reason: Hypotension Famotidine (Pepcid) 20 mg PO Q12H PRN PRN Reason: Heartburn Fentanyl (Sublimaze) 100 mcg IVPUSH Q1H PRN PRN Reason: Pain (moderate 4-6) Fentanyl (Sublimaze) 100 mcg EPIDUR Q3H PRN PRN Reason: Pain Last Admin: 04/26/19 07:49 Dose: 100 mcg Fentanyl/Bupivacaine HCl (Fentanyl/Bupivacaine/Ns 2 Mcg-0.125% 100 Ml) 100 ml EPIDUR ASDIRECTED PRN PRN Reason: Pain Last Admin: 04/26/19 07:49 Dose: 100 ml Oxytocin/Lactated Ringer's (Pitocin In Lr 10 Units/1,000 Ml) 10 unit in 1,000 mls @ 12 mls/hr IV TITRATE WESLY; Protocol Last Titration: 04/26/19 08:00 Dose: 4 munits/min, 24 mls/hr Oxytocin/Lactated Ringer's (Pitocin In Lr 10 Units/1,000 Ml) 10 unit in 1,000 mls @ 500 mls/hr IV .CONTINUOUS WESLY Lidocaine HCl (Xylocaine 1%) 20 ml INJECT ONETIME ONE Stop: 04/25/19 12:52 Lidocaine HCl (Xylocaine 1%) Confirm Administered Dose 50 ml .ROUTE .STK-MED ONE Stop: 04/26/19 10:17 Last Admin: 04/27/19 04:35 Dose: Not Given Measles/Mumps/Rubella Vaccine Live (M-M-R Ii Vaccine) 0.5 ml SUBCUT .ONCE ONE Stop: 04/27/19 06:01 Misoprostol (Cytotec) 25 mcg VAG Q4H WESLY Stop: 04/25/19 21:01 Last Admin: 04/25/19 21:32 Dose: 25 mcg Nalbuphine HCl (Nubain) 10 mg IVPUSH ONETIME ONE Stop: 04/26/19 07:02 Last Admin: 04/26/19 07:15 Dose: 10 mg Ondansetron HCl (Zofran) 4 mg IVPUSH Q4H PRN PRN Reason: Nausea/Vomiting - Exam General: Reports: Alert, Oriented HEENT: Reports: Pupils Equal, Pupils Reactive, EOMI, Mucous Membr. Moist/[place] Neck: Reports: Supple Lungs: Reports: Clear to Auscultation, Normal Respiratory Effort Cardiovascular: Reports: Regular Rate, Regular Rhythm GI/Abdominal Exam: Normal Bowel Sounds, Soft, Non-Tender, No Organomegaly, No Distention, No Abnormal Bruit, No Mass, Pelvis Stable Rectal (Female) Exam: Normal Exam Back Exam: Reports: Normal Inspection, Full Range of Motion Extremities: Normal Inspection, Normal Range of Motion, Non-Tender, No Pedal Edema, Normal Capillary Refill Skin: Reports: Warm, Dry, Intact Wound/Incisions: Reports: Healing Well Neurological: Reports: No New Focal Deficit Psy/Mental Status: Reports: Alert, Normal Affect, Normal Mood
[2019-04-27] MEDS ORDERED: Prenatal Multivitamin with Calcium/Folic Acid/Iron Tab PO SCH (09:00)
--- NOTE | 2019-04-27 09:25 | PCM48HPAN ---
Post Anesthesia Note - EVALUATION WITHIN 48HRS OF ANESTHETIC Vital Signs in Normal Range: Yes Patient Participated in Evaluation: Yes Respiratory Function Stable: Yes Airway Patent: Yes Cardiovascular Function Stable: Yes Hydration Status Stable: Yes Pain Control Satisfactory: Yes Nausea and Vomiting Control Satisfactory: Yes Mental Status Recovered: Yes Vital Signs: Last Vital Signs Temp 36.7 C 04/27/19 02:55 Pulse 61 04/27/19 02:55 Resp 16 04/27/19 02:55 BP 94/66 04/27/19 02:55 Pulse Ox 96 04/27/19 02:55
[2019-04-27] MEDS: Ibuprofen 800 MG Tab PO PRN (11:55)
== END 2019-04-27 14:00 | disposition home or self-care (01) | DRG 560 ==
LOC: JD.OB 10:08 → OBSVTOIN 04-26 10:08 → JD.OB 04-26 10:09
PROVIDERS: ADMIT Family Medicine; ATTEND Family Medicine
PROC: 10E0XZZ Delivery of Products of Conception, External Approach (ICD-10-PCS; principal; 2019-04-26)
PROC: 3E0P7VZ Introduction of Hormone into Female Reproductive, Via Natural or Artificial Opening (ICD-10-PCS; 2019-04-26)
PROC: 3E033VJ Introduction of Other Hormone into Peripheral Vein, Percutaneous Approach (ICD-10-PCS; 2019-04-26)
PROC: 0HQ9XZZ Repair Perineum Skin, External Approach (ICD-10-PCS; 2019-04-26)
PROC: 3E0R3BZ Introduction of Anesthetic Agent into Spinal Canal, Percutaneous Approach (ICD-10-PCS; 2019-04-26)
PROC: 3E0234Z Introduction of Serum, Toxoid and Vaccine into Muscle, Percutaneous Approach (ICD-10-PCS; 2019-04-27)
DX: O99.344 Other mental disorders complicating childbirth (principal); F41.8 Other specified anxiety disorders; O70.0 First degree perineal laceration during delivery; O69.81X0 Labor and delivery complicated by cord around neck, without compression, not applicable or unspecified; Z3A.39 39 weeks gestation of pregnancy; Z37.0 Single live birth; Z23 Encounter for immunization
CPT/HCPCS: 01967; 36415; 51702; 59025; 59409; 85027; 86592; 86850; 86900; 86901; 90471; 90707; A9270-GY; J2300; J2590; J3010; J3490; J7120

== ENCOUNTER 2022-04-20 19:41 | Emergency (ER) | payer SELFPAY | END 2022-04-20 21:43 | disposition home or self-care (01) | LOC: JD.ED 19:41 | DX: S90.32XA Contusion of left foot, initial encounter (principal); Z88.8 Allergy status to other drugs, medicaments and biological substances; W22.09XA Striking against other stationary object, initial encounter | CPT/HCPCS: 73620-26-LT; 73620-LT; 99282; 99283 ==